=== PATIENT | female | born 1995 ===

== ENCOUNTER 2020-02-03 01:05 | Emergency (ER) | payer SELFPAY ==
[2020-02-03 01:10] VITALS: BP 117/77; PULSE 96; RESP 18; TEMP 37.1; O2SAT 96; BMI 34.4
--- NOTE | 2020-02-03 01:30 | ED.ASTHMA ---
HPI - Asthma General Chief Complaint: General Medical Stated Complaint: Sob Time Seen by Provider: 02/03/20 01:09 Source: patient Mode of arrival: ambulatory Limitations: no limitations History of Present Illness HPI Narrative: This is a 24-year-old female with history of asthma and presents with worsening shortness of breath over the past couple of days with associated body aches, cough. She was tested for COVID-19 yesterday, however those results are still pending. Patient states that although she has had a history of asthma she has not been on any medication for years until recently she noticed that she was becoming increasingly short of breath.Otherwise, no recent history of long car rides or plane trips, hemoptysis, estrogen supplementation, personal history of cancer, recent surgery or bed bound state, calf pain or calf swelling. Related Data Previous Rx's Medication Instructions Recorded albuterol sulfate [Ventolin HFA] 2 puff INHALATION Q6H PRN #1 ea 02/03/20 prednisone 40 mg PO DAILY 4 Days #8 tab 02/03/20 Allergies Allergy/AdvReac Type Severity Reaction Status Date / Time No Known Allergies Allergy Verified 02/03/20 01:08 Review of Systems Review of Systems: pertinent positives and negatives as stated in HPI 10 point review of systems is otherwise negative. PMFSH Past Medical History Attestation statement: The following information was validated with the patient. Source: nursing notes reviewed Medical History (Updated 02/03/20 @ 02:31 by Sydney Hawk MD) Asthma Social History Social History Alcohol intake: current Smoking Status: Never smoker Smoked in Last 30 Days: No Use of substances other than those prescribed or required for medical reasons: Yes Substance Use Type: Marijuana Substance Use Frequency: Occasionally Advance Directives: No Advance Directives Information Provided: Yes Physical Exam Vital Signs: Vital Signs: Vital Signs Temp Pulse Resp BP Pulse Ox 02/03/20 01:50 98 14 119/63 100 02/03/20 01:10 98.7 F 96 18 117/77 96 Body Mass Index 34.4 VITAL SIGNS: Reviewed. GENERAL: Well developed, well nourished, in no acute distress. HEAD: Normocephalic/atraumatic, EYES: PERRLA, EOMI intact without pain, no nystagmus/pallor/icterus noted EARS: Ext canals without abnormality, TMs non-bulging and non-erythematous NOSE: Nares patent bilateral OROPHARYNX: no oral lesions noted, posterior pharynx clear and non-erythematous without noted tonsillar enlargement/erythema/exudates NECK: Supple, no adenopathy LUNGS: Expiratory wheezing bilaterally. No adventitious sounds or accessory muscle use. SpO2<96> CARDIOVASCULAR: Regular rate and rhythm without noted murmurs, no JVD or lower extremity edema. ABDOMEN: Soft, non-tender, non-distended with bowel sounds. No rigidity. No guarding. No palpable masses or hernias noted MUSCULOSKELETAL: No tenderness, deformities, or effusions noted on gross inspection. EXTREMITIES: No cyanosis, clubbing or edema. SKIN: Inspection of the skin reveals no rashes, ulcerations, jaundice, pallor, or petechiae. NEUROLOGIC: Alert and oriented x 4. Strength and sensation to light touch were grossly intact x 4. Course Course Course Narrative: This is a 24-year-old female with history and clinical presentation most consistent with mild asthma exacerbation likely secondary to acute viral syndrome. Patient will be treated as a mild asthma exacerbation a chest x-ray will be obtained to evaluate for any COVID pattern like findings. Patient received Solu-Medrol and an hour long nebulized treatment. On review of all investigations chest x-ray is negative for any acute findings and on re-evaluation patient endorses significant improvement in ease of breathing and oxygenation has improved to 99% on room air. MDM - Asthma Lab Data Labs: Lab Results 02/03/20 Range/Units 01:35 Urine Test NEGATIVE (NEGATIVE) Discharge Plan Discharge Clinical Impression: Asthma exacerbation, mild Patient Disposition: Home, Self-Care Instructions: Asthma (ED) Additional Instructions: You must continue to self quarantine until the results of your COVID-19 testing are available. The patient and/or family acknowledge understanding of results (as applicable), diagnosis, treatment plan, need for follow up, and symptoms that should prompt a return to the emergency room. Prescriptions: New albuterol sulfate [Ventolin HFA] 90 mcg/actuation HFA aerosol inhaler 2 puff inhalation Q6H PRN (Reason: shortness of breath or wheezing) Qty: 1 RF: 0 prednisone 20 mg tablet 40 mg PO DAILY 4 Days Qty: 8 RF: 0 Referrals: Physician,Unknown [Primary Care Provider] - 2 days ( asthma exacerbation)
[2020-02-03] MEDS: Albuterol Sulfate (0.083%) 2.5 MG/3 ML VIAL.NEB 10 MG INHALE (01:37)
[2020-02-03] MEDS: methylPREDNISolone Sod Succ/PF 125 MG/2 ML VIAL IVPUSH (01:46)
[2020-02-03 01:50] VITALS: BP 119/63; PULSE 98; RESP 14; O2SAT 100
[2020-02-03 01:55] LABS: UPreg QC Valid YES; Urine Pregnancy NEGATIVE (NEGATIVE)
--- NOTE | 2020-02-03 01:55 | XR_ITS ---
EXAMINATION: XR CHEST CLINICAL INFORMATION: Shortness of breath COMPARISON: None TECHNIQUE: Frontal view of the chest was obtained. FINDINGS: Cardiac leads overlie the chest. The lungs are well expanded. There is no focal consolidation, edema, or effusion. No pneumothorax. The cardiomediastinal silhouette is within normal limits. No acute osseous abnormality. Bilateral nipple piercing. XR/XR chest 1V IMPRESSION: No acute pulmonary finding.
== END 2020-02-03 02:51 | disposition home or self-care (01) ==
PROVIDERS: Emergency Provider Student in an Organized Health Care Education/Training Program
DX: J45.31 Mild persistent asthma with (acute) exacerbation (principal); R06.02 Shortness of breath; Z20.828 Contact with and (suspected) exposure to other viral communicable diseases
CPT/HCPCS: 71045; 81025; 96374; 99284; J2930